=== PATIENT | female | born 2005 | race Two or more races ===

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

== ENCOUNTER 2025-06-04 20:55 | Emergency (ER) | payer MEDICAID ==
[~2025-06-04] VITALS: Ht 157.5 cm; Wt 50.0 kg
[~2025-06-04 20:55] MED LIST: IBUP-1454 PO
--- NOTE | 2025-06-04 21:49 | ED.PDOC ---
General HPI Comments Pt presents with cc of left groin pain x 2 days. Pt states she feels as though there is a hard lump in her left groin. Pain is currently an 8/10, worsens with movement with intermittent nausea. Pt denies any f/d/v. Chief Complaint: Abdominal Pain Time Seen by MD: 20:59 Reviewed notes: Nurses Notes, Medications, Allergies Allergies: Coded Allergies: No Known Drug Allergy (Verified Allergy, Unknown, 06/04/25) Home Meds Active Scripts Ibuprofen (Ibuprofen) 600 Mg Tab, 1 TAB PO Q6HP PRN, #20 TAB Prov:DOMINICK LOPEZ PAC 06/06/24 Information Source: Patient Mode of Arrival: Ambulatory Past Medical History PAST MEDICAL HISTORY: Denies Surgical History: Denies all surgeries PROMOTIONS FIRM ACCOUNTS MANAGER History: No Pertinent PROMOTIONS FIRM ACCOUNTS MANAGER History Family History Family History: Reviewed,noncontributory to illness, No family hx of Cancer, No family hx of DM, No family hx of Heart suzanne, No family hx of HTN, No family hx ofKidney suzanne, No family hx of Liver suzanne, No family hx of Lung suzanne, No family hx of Stroke Social History Smoker: Non-Smoker Alcohol: Denies ETOH Use Drugs: Denies Drug Use Lives In: Home All Other Systems: Reviewed and Negative (SEE HPI) Physical Exam General Appearance: No Apparent Distress, Normal HEENT: Pharynx Normal Neck: Full Range of Motion, Non-Tender Respiratory: Lungs Clear, No Respiratory Distress, Normal Breath Sounds Cardiovascular: No Edema, No JVD, No Murmur, No Gallop, Normal Peripheral Pulses, Regular Rate/Rhythm Breast Exam: Deferred Gastrointestinal: No Organomegaly, Non Tender, No Pulsatile Mass, Normal Bowel Sounds, Soft Genitalia: Deferred Pelvic: Deferred Rectal: Deferred Extremities: Normal capillary refill, Normal range of motion, No pedal edema Musculoskeletal : Apperance: Normal Neurologic: Alert, No Motor Deficits, Normal Affect, Normal Mood, No Sensory Deficits Cerebellar Function: Normal Reflexes: NOT DONE Skin: Dry, Normal Color, Warm Lymphatic: Inguinal Node Tender (L) (tenderness susan palpation, non matted) Was a procedure done? Was a procedure done?: No Differential Diagnosis Kidney stone (Female): N/A Kidney stone (Male): N/A Penile/Scrotal: N/A Urinary Problem (Male): N/A Urinary Problem (Female): Urolithiasis, UTI, Vaginitis X-Ray, Labs, Meds, VS Vital Signs Date Time Temp Pulse Resp B/P (MAP) Pulse Ox O2 Delivery O2 Flow Rate FiO2 06/04/25 20:58 98.1 83 16 108/71 98 98.1 Time of 1ST Reevaluation: 20:59 Reevaluation 1ST: Unchanged Time of 2ND Reevaluation: 21:52 Reevaluation 2ND: Improved Patient Education/Counseling: Diagnosis, Treatment, Need For Follow Up Family Education/Counseling: No Family Present SEPSIS Sepsis Screen Date sepsis recognized/suspect: Jun 04, 2025 Time Sepsis recognized/suspect: 2100 Recent Procedure: No On Antibiotic Therapy: No Respiratory Rate >20: No Heart Rate >90: No Temp<36 C (96.8 F) or >38.3 C: No SBP <90 or MAP <65 mmHG: No New Acute Mental Status Change: No Is the patient on CPAP, BIPAP,: No Vital Signs Date Time Temp Pulse Resp B/P (MAP) Pulse Ox O2 Delivery O2 Flow Rate FiO2 06/04/25 20:58 98.1 83 16 108/71 98 98.1 Departure 1 Departure Time of Disposition: 21:52 Impression: Primary Impression: Inguinal adenopathy Disposition: 01 HOME / SELF CARE / HOMELESS Condition: Stable e-Prescriptions Ibuprofen (Ibuprofen) 800 Mg Tab 800 MG PO Q8HP PRN for 5 Days, #15 TAB Prov: BUSHRA AHMADI 06/04/25 Doxycycline Hyclate (Doxycycline Hyclate) 100 Mg Cap 100 MG PO BID for 7 Days, #14 CAP Prov: BUSHRA AHMADI 06/04/25 Discharged With: Self Critical Care Note Critical Care Time?: No Stability Stability form required: No BUSHRA AHMADI Jun 04, 2025 21:49
[2025-06-04] MEDS ORDERED: IBUP-1456 PO (21:55)
[2025-06-04] MEDS ORDERED: DOXY100C4 PO (21:55)
[2025-06-04 22:17] VITALS: BP 107/59; PULSE 66; RESP 19; TEMP 98.7; O2SAT 99
== END 2025-06-04 22:25 | disposition home or self-care (01) ==
LOC: ER 20:55
DX: R59.0 Localized enlarged lymph nodes (principal)

== ENCOUNTER 2025-07-03 16:00 | Emergency (ER) | payer MEDICAID ==
[~2025-07-03] VITALS: Ht 157.5 cm; Wt 49.0 kg
--- NOTE | 2025-07-03 19:14 | ED.PDOC ---
History of Present Illness HPI Comments 19 y/o F, presents to the ED for CC of flu-like symptoms. Patient states, she has been experiencing flu-like symptoms including: fever, cough, nasal congestion, and headache x2days. Patient denies body-aches, sore-throat, and loss of taste or smell. No other symptoms or modifying factors are present at this time. Chief Complaint: Flu like Time Seen by MD: 19:00 Reviewed Notes: Nurses Notes, Medications, Allergies Allergies: Coded Allergies: No Known Drug Allergy (Verified Allergy, Unknown, 06/04/25) Home Meds Active Scripts Oseltamivir Phosphate (Tamiflu) 75 Mg Cap, 1 CAP PO BID for 5 Days, #10 CAP Prov:YOANDY WU MD 07/03/25 Ibuprofen (Ibuprofen) 600 Mg Tab, 1 TAB PO Q6HP PRN, #20 TAB Prov:DOMINICK LOPEZ PAC 06/06/24 Information Source: Patient Mode of Arrival: Ambulatory Severity: Moderate Timing: Days Duration: Since onset Prehospital treatment: None Past Medical History PAST MEDICAL HISTORY: Denies Surgical History: Denies all surgeries MEAT MOLDER History: No Pertinent MEAT MOLDER History Family History Family History: Reviewed,noncontributory to illness, No family hx of Cancer, No family hx of DM, No family hx of Heart suzanne, No family hx of HTN, No family hx ofKidney suzanne, No family hx of Liver suzanne, No family hx of Lung suzanne, No family hx of Stroke Social History Smoker: Non-Smoker Alcohol: Denies ETOH Use Drugs: Denies Drug Use Lives In: Home Constitutional: reports: fever; denies: chills, diaphoresis, fatigue, malaise, sweats, weakness, others EENTM: reports: nose congestion; denies: blurred vision, double vision, ear bleeding, ear discharge, ear drainage, ear pain, ear ringing, eye pain, eye redness, hearing loss, mouth pain, mouth swelling, nasal discharge, nose bleeding, nose pain, photophobia, tearing, throat pain, throat swelling, voice changes, others Respiratory: reports: cough; denies: hemoptysis, orthopnea, SOB at rest, shortness of breath, SOB with excertion, stridor, wheezing, others Cardiovascular: denies: chest pain, dizzy spells, diaphoresis, Dyspnea on exertion, edema, irregular heart beat, left arm pain, lightheadedness, palpitations, PND, syncope, others Gastrointestinal: denies: abdomen distended, abdominal pain, blood streaked bowels, constipated, diarrhea, dysphagia, difficulty swallowing, hematemesis, melena, nausea, poor appetite, poor fluid intake, rectal bleeding, rectal pain, vomiting, others Genitourinary: denies: abnormal vagina bleeding, burning, dyspareunia, dysuria, flank pain, frequency, hematuria, incontinence, pain, , vagina discharge, urgency, others Neurological: reports: headache; denies: dizziness, fainting, left sided numbness, left sided weakness, numbness, paresthesia, pre-existing deficit, right sided numbness, right sided weakness, seizure, speech problems, tingling, tremors, weakness, others Musculoskeletal: denies: back pain, gout, joint pain, joint swelling, muscle pain, muscle stiffness, neck pain, others Integumetry: denies: bruises, change in color, change in hair/nails, dryness, laceration, lesions, lumps, rash, wounds, others Allergic/Immunocompromised: denies: Difficulty Healing, Frequent Infections, Hives, Itching, others Hematologic/Lymphatic: denies: anemia, blood clots, easy bleeding, easy br uising, swollen glands, others Endocrine: denies: excessive hunger, excessive sweating, excessive thirst, excessive urination, flushing, intolerance to cold, intolerance to heat, unexplained weight gain, unexplained weight loss, others Psychiatric: denies: anxiety, bipolar disorder, depression, hopeless, panic disorder, schizophrenia, sleepless, suicidal, others All Other Systems: Reviewed and Negative Physical Exam General Appearance: No Apparent Distress, Normal HEENT: Normal ENT Inspection, Pharynx Normal, TMs Normal Neck: Full Range of Motion, Non-Tender, Normal, Normal Inspection Respiratory: Chest Non-Tender, Lungs Clear, No Accessory Muscle Use, No Respiratory Distress, Normal Breath Sounds Cardiovascular: No Edema, No JVD, No Murmur, No Gallop, Normal Peripheral Pulses, Regular Rate/Rhythm Breast Exam: Deferred Gastrointestinal: No Organomegaly, Non Tender, No Pulsatile Mass, Normal Bowel Sounds, Soft Genitalia: Deferred Pelvic: Deferred Rectal: Deferred Extremities: No calf tenderness, Normal capillary refill, Normal inspection, Normal range of motion, Non-tender, No pedal edema Musculoskeletal : Apperance: Normal Neurologic: Alert, sandstone inspector repairer II-XII nml as Tested, No Motor Deficits, Normal Affect, Normal Mood, No Sensory Deficits Cerebellar Function: Normal Reflexes: Normal Skin: Dry, Normal Color, Warm Lymphatic: No Adenopathy Was a procedure done? Was a procedure done?: No Differential Dx Considerations may include: viral syndrome, URI, sinusitis, influenza X-Ray, Labs, Meds, VS Vital Signs Date Time Temp Pulse Resp B/P (MAP) Pulse Ox O2 Delivery O2 Flow Rate FiO2 07/03/25 19:50 98.4 89 16 103/70 (81) 99 98.4 07/03/25 19:50 Room Air 07/03/25 16:03 97.9 106 18 121/78 97 97.9 Time of 1ST Reevaluation: 19:30 Reevaluation 1ST: Unchanged Patient Education/Counseling: Diagnosis, Treatment Family Education/Counseling: No Family Present SEPSIS Sepsis Screen Date sepsis recognized/suspect: Jul 03, 2025 Time Sepsis recognized/suspect: 1605 Recent Procedure: No On Antibiotic Therapy: No Respiratory Rate >20: No Heart Rate >90: Yes Temp<36 C (96.8 F) or >38.3 C: No SBP <90 or MAP <65 mmHG: No New Acute Mental Status Change: No Is the patient on CPAP, BIPAP,: No Vital Signs Date Time Temp Pulse Resp B/P (MAP) Pulse Ox O2 Delivery O2 Flow Rate FiO2 07/03/25 19:50 98.4 89 16 103/70 (81) 99 98.4 07/03/25 19:50 Room Air 07/03/25 16:03 97.9 106 18 121/78 97 97.9 Departure 1 Departure Time of Disposition: 21:00 Impression: Primary Impression: Influenza Disposition: HOME / SELF CARE / HOMELESS Condition: Stable e-Prescriptions Oseltamivir Phosphate (Tamiflu) 75 Mg Cap 1 CAP PO BID for 5 Days, #10 CAP Prov: YOANDY WU MD 07/03/25 Discharged With: Self Critical Care Note Critical Care Time?: No Stability Stability form required: No Heart Score Heart Score: Heart Score Response (Comments) Value History N/A 0 EKG N/A 0 Age N/A 0 Risk Factors N/A 0 Troponin N/A 0 Total 0 I personally scribed for YOANDY WU MD ([email or web address]) on 07/03/25 at 19:14. Electronically submitted by Mayte Wright ([email or web address]). YOANDY WU MD Jul 03, 2025 19:14
[2025-07-03] MEDS ORDERED: OSEL75CA5 PO (19:40)
[2025-07-03 19:50] VITALS: BP 103/70; PULSE 89; RESP 16; TEMP 98.4; O2SAT 99
== END 2025-07-03 19:56 | disposition home or self-care (01) ==
LOC: ER 16:00
DX: J11.1 Influenza due to unidentified influenza virus with other respiratory manifestations (principal); Z79.899 Other long term (current) drug therapy